=== PATIENT | male | born 1975 | race Caucasian/White ===

== ENCOUNTER 2018-12-26 16:48 | Emergency (ER) | payer OTHER, SELFPAY ==
[2018-12-26] VITALS (44 sets, daily range): BP systolic 110–145; BP diastolic 39–69; PULSE 52–66; RESP 14–16; TEMP 36.7; O2SAT 95–100
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
[2018-12-26] MEDS: Omnipaque 350 MG/ML 100 ML BTL 85 ML IJ (18:14)
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
[2018-12-26 19:58] LABS: Abs Immature Grans 0.02 k/cumm (0.0-0.09); Absolute Basophil Count 0.03 k/cumm (0.0-0.2); Absolute Eosinophil Count 0.04 k/cumm (0.0-0.7); Absolute Monocyte Count 0.68 k/cumm (0.11-0.7); Basophils % 0.3; Eosinophils % 0.4; HCT 40.1 % (40.0-50.0); HGB 14.5 g/dL (13.5-17.5); Immature Grans % 0.2; Mean Corp. HGB Concentration 36.2 g/dL (32.0-36.0); Mean Corpuscular Volume 85.9 fL (80-95); Mean Platelet Volume 10.5 fL (8.0-11.0); Monocytes % 6.2; Neutrophils % 82.9; Platelet Count 171 x1000/uL (130-400); RBC 4.67 m/cumm (4.50-6.00); RBC Distribution Width 12.2 % (11.8-14.1); White Blood Cell Count 10.95 k/cumm (4.4-10.8)
[2018-12-26 20:01] LABS: ALT 31 U/L (12-78); AST 40 U/L (15-37); Albumin 3.4 g/dL (3.4-5.0); Alkaline Phosphatase 69 U/L (46-116); Anion Gap 9.8 mmol/L (3-11); BUN 20 mg/dL (7-18); Bilirubin, Total 0.8 mg/dL (0.2-1.0); CO2 26.2 mmol/L (21.0-32.0); CREATININE 1.14 mg/dL (0.70-1.30); Calcium 8.6 mg/dL (8.5-10.1); Chloride 103 mmol/L (98-107); Glucose 91 mg/dL (70-100); Potassium 3.9 mmol/L (3.5-5.1); Sodium 139 mmol/L (136-145); Total Protein 6.3 g/dL (6.4-8.2)
[2018-12-26 20:02] LABS: Absolute Neutrophil Count 9.08 k/cumm (1.2-6.7)
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
[2018-12-26] MEDS: Normal Saline 1,000 ML 1000 ML IV (21:12)
== END 2018-12-26 21:55 | disposition short-term general hospital (02) ==
PROVIDERS: Emergency Provider Student in an Organized Health Care Education/Training Program
DX: R20.2 Paresthesia of skin (principal); S12.691A Other nondisplaced fracture of seventh cervical vertebra, initial encounter for closed fracture; S09.90XA Unspecified injury of head, initial encounter; V18.0XXA Pedal cycle driver injured in noncollision transport accident in nontraffic accident, initial encounter; Y93.55 Activity, bike riding
CPT/HCPCS: 36415; 70496; 70498; 71250; 80053; 96360; 99285; 70450; 72125; 85025; J3490